=== PATIENT | female | born 1985 | race American Indian/Alaskan Native ===

== ENCOUNTER 2017-04-13 10:49 | Emergency (ER) | payer OTHER ==
[2017-04-13 11:23] VITALS: BP 114/73
[2017-04-13 11:54] LABS: Basophils % (Auto) 0.6 % (0.0-1.8); Eosinophils % (Auto) 0.7 % (0.0-4.3); Hematocrit 37.4 % (30.3-42.9); Hemoglobin 12.2 gm/dl (10.1-14.3); Mean Corpuscular HGB Conc 33 % (30-34); Mean Corpuscular Hemoglobin 28 pg (28-32); Mean Corpuscular Volume 85 fl (79-97); Platelet Count 221 K/mm3 (140-440); Red Blood Count 4.38 M/mm3 (3.65-5.03); Red Cell Distribution Width 12.5 % (13.2-15.2); White Blood Count 5.3 K/mm3 (4.5-11.0)
[2017-04-13 12:27] LABS: Bilirubin,Urine NEG (Negative); Blood,Urine NEG (Negative); Ketones,Urine NEG (Negative); Leukocyte Esterase,Urine NEG (Negative); Mucus,Urine 1+ /HPF; Nitrite,Urine NEG (Negative); Protein,Urine <15 mg/dL mg/dL (Negative); Urobilinogen,Urine < 2.0 mg/dL (<2.0)
--- NOTE | 2017-04-13 14:26 | Ultrasound Report ---
Transabdominal and transvaginal OB ultrasound. History: Vaginal bleeding. Findings: A single intrauterine is identified with a pole length of 5.2 mm corresponding to gestational age of 6 weeks and 2 days. There is no evidence of subchorionic hemorrhage. heart rate is 133 beats per minute. The ovaries are normal in size and configuration. No adnexal abnormalities are seen. Impression: Viable IUP at 6 weeks 2 days gestation.
== END 2017-04-13 18:58 | disposition left against medical advice (07) ==
LOC: ED 10:49
DX: O20.9 Hemorrhage in early pregnancy, unspecified (principal); Z3A.01 Less than 8 weeks gestation of pregnancy; Z53.21 Procedure and treatment not carried out due to patient leaving prior to being seen by health care provider
CPT/HCPCS: 36415; 76801; 76817; 81001; 84702; 85025; 86850; 86900; 86901